=== PATIENT | female | born 1980 | race Caucasian/White ===

== ENCOUNTER → 2016-09-23 | Outpatient (CLI) | payer OTHER ==
[~2016-09-23] MED LIST: AMBIEN 5MG TABLE5 MG PO; BIRTH CONTROL PILL; IRON325 M1 PO; MOTRIN 600600 MG/TAB PO; PERCOCET 325 MG1 TA2 PO; PRENATAL1 TA1 PO; ZANTAC 150MG T150 MG PO; ZOLOFT 100MG100 MG PO
== END ==
LOC: BHSO 15:30
DX: F90.0 Attention-deficit hyperactivity disorder, predominantly inattentive type (principal)

== ENCOUNTER → 2017-03-24 | Outpatient (CLI) | payer OTHER | LOC: BHSO 15:45 | DX: F90.0 Attention-deficit hyperactivity disorder, predominantly inattentive type (principal) ==

== ENCOUNTER → 2017-09-23 | Outpatient (CLI) | payer OTHER | LOC: BHSO 15:23 | DX: F06.32 Mood disorder due to known physiological condition with major depressive-like episode (principal) | CPT/HCPCS: G0463 ==

== ENCOUNTER → 2018-03-15 | Outpatient (CLI) | payer OTHER ==
[~2018-03-15] MED LIST changes: +ADDERALL XR30 MG PO; +ADDERALL5 MG PO
== END ==
LOC: BHSO 16:19
DX: F06.32 Mood disorder due to known physiological condition with major depressive-like episode (principal)
CPT/HCPCS: G0463

== ENCOUNTER → 2018-09-13 | Outpatient (CLI) | payer OTHER | LOC: BHSO 15:55 | DX: F33.42 Major depressive disorder, recurrent, in full remission (principal) | CPT/HCPCS: G0463 ==

== ENCOUNTER → 2019-04-27 | Outpatient (CLI) | payer OTHER | LOC: BHSO 15:07 | DX: F33.41 Major depressive disorder, recurrent, in partial remission (principal) | CPT/HCPCS: G0463 ==

== ENCOUNTER → 2019-09-19 | Outpatient (CLI) | payer OTHER | LOC: BHSO 15:28 | DX: F33.42 Major depressive disorder, recurrent, in full remission (principal) | CPT/HCPCS: G0463 ==

== ENCOUNTER 2019-12-11 18:38 | Emergency (ER) | payer OTHER ==
[~2019-12-11] VITALS: Ht 167.6 cm; Wt 67.3 kg
[2019-12-11] MEDS ORDERED: CEFTIN500 MG PO (18:55)
[2019-12-11 20:00] VITALS: BP 144/98; PULSE 98; TEMP 99
== END 2019-12-11 20:00 | disposition home or self-care (01) ==
LOC: COL.ER 18:38
DX: L72.3 Sebaceous cyst (principal)

== ENCOUNTER → 2020-03-21 | Outpatient (CLI) | payer OTHER ==
[~2020-03-21] MED LIST changes: +ADDERALL XR20 MG PO; -ADDERALL XR30 MG PO; +CEFTIN500 MG PO; +CEPHALEXIN500 M1 PO
== END ==
LOC: BHSO 15:52
DX: F41.1 Generalized anxiety disorder (principal)
CPT/HCPCS: G0463

== ENCOUNTER 2024-06-27 17:54 | Emergency (ER) | payer OTHER ==
[~2024-06-27] VITALS: Ht 167.6 cm; Wt 84.1 kg
[~2024-06-27 17:54] MED LIST changes: +NORCO 325 MG-51 TAB PO; +PRISTIQ25 MG PO
[2024-06-27 18:02] VITALS: BP 161/113; TEMP 98.6
[2024-06-27] MEDS ORDERED: Ibuprofen 600 MG TAB PO ONE (19:30)
[2024-06-27] MEDS ORDERED: Tdap Vaccine 0.5 ML SYRINGE IM ONE (19:30)
[2024-06-27] MEDS ORDERED: CEPHALEXIN500 M1 PO (20:15)
[2024-06-27] MEDS ORDERED: Home HYDROcodone/Acetaminophen 5/325 MG #4 TABS/PACK PO ONE (20:15)
[2024-06-27] MEDS ORDERED: Cephalexin 500 MG CAP PO ONE (20:15)
[2024-06-27 20:45] VITALS: PULSE 88
== END 2024-06-27 20:45 | disposition home or self-care (01) ==
LOC: COL.ER 17:54
DX: S62.631A Displaced fracture of distal phalanx of left index finger, initial encounter for closed fracture (principal); Z23 Encounter for immunization; W20.8XXA Other cause of strike by thrown, projected or falling object, initial encounter; Y93.89 Activity, other specified; Y92.818 Other transport vehicle as the place of occurrence of the external cause